=== PATIENT | male | born 1995 | race Caucasian/White ===

== ENCOUNTER 2021-04-24 14:44 | Emergency (ER) | payer OTHER, SELFPAY ==
--- NOTE | ~2021-04-24 | CT_ITS ---
EXAMINATION: CT HEAD WITHOUT CONTRAST CT CERVICAL SPINE WITHOUT CONTRAST CLINICAL INFORMATION: Fall with loss of consciousness, with headache COMPARISON: None TECHNIQUE: CT of the head and cervical spine were performed without intravenous contrast. Multiplanar reformats were rendered and reviewed. This CT examination was performed using dose optimization techniques as appropriate, variously including the following: *Automated exposure control *Adjustment of mA and/or kV according to patient size (this includes techniques or standardized protocols for targeted exams where dose is matched to indication/reason for exam; i.e. extremities or head) *Use of iterative reconstruction technique DLP: 1225 mGy-cm. FINDINGS: CT head: No intracranial hemorrhage, large infarction, or mass lesion is seen. No extra-axial collection is appreciated. The ventricles are normal in size and configuration without evidence of hydrocephalus. The visualized paranasal sinuses and mastoid air cells are clear. CT cervical spine: The cervical alignment is normal. The craniocervical junction is normal. The vertebral body heights are maintained. No cervical spine fracture is seen. The paraspinal soft tissues are within normal limits. The partially imaged lung apices are clear. CT/CT cervical spine wo con IMPRESSION: CT head: No acute intracranial finding. CT cervical spine: No cervical spine fracture or traumatic malalignment identified.
--- NOTE | ~2021-04-24 | CT_ITS ---
EXAMINATION: CT HEAD WITHOUT CONTRAST CT CERVICAL SPINE WITHOUT CONTRAST CLINICAL INFORMATION: Fall with loss of consciousness, with headache COMPARISON: None TECHNIQUE: CT of the head and cervical spine were performed without intravenous contrast. Multiplanar reformats were rendered and reviewed. This CT examination was performed using dose optimization techniques as appropriate, variously including the following: *Automated exposure control *Adjustment of mA and/or kV according to patient size (this includes techniques or standardized protocols for targeted exams where dose is matched to indication/reason for exam; i.e. extremities or head) *Use of iterative reconstruction technique DLP: 1225 mGy-cm. FINDINGS: CT head: No intracranial hemorrhage, large infarction, or mass lesion is seen. No extra-axial collection is appreciated. The ventricles are normal in size and configuration without evidence of hydrocephalus. The visualized paranasal sinuses and mastoid air cells are clear. CT cervical spine: The cervical alignment is normal. The craniocervical junction is normal. The vertebral body heights are maintained. No cervical spine fracture is seen. The paraspinal soft tissues are within normal limits. The partially imaged lung apices are clear. CT/CT head/brain wo con IMPRESSION: CT head: No acute intracranial finding. CT cervical spine: No cervical spine fracture or traumatic malalignment identified.
[2021-04-24 15:25] VITALS: BP 141/82; PULSE 71; RESP 18; TEMP 36.8; O2SAT 99; BMI 25.0
[2021-04-24 16:00] VITALS: BP 148/83; PULSE 72; RESP 18; TEMP 36.7; O2SAT 96
--- NOTE | 2021-04-24 16:56 | ED_ITS ---
HPI - Head Injury General Chief complaint: Head Injury <RSA Warner Last Filed: 04/24/21 18:47> Stated complaint: headache, nausea <RAS Warner Last Filed: 04/24/21 18:47> Time Seen by Provider: 04/24/21 16:51 <RAS Warner Last Filed: 04/24/21 18:47> Source: patient <RAS Warner Last Filed: 04/24/21 18:47> Mode of arrival: ambulatory <RAS Warner Last Filed: 04/24/21 18:47> Limitations: no limitations <RAS Warner Last Filed: 04/24/21 18:47> History of Present Illness HPI Narrative: This is a 25-year-old male with no known medical history presenting to the emergency department with right-sided headache, and neck pain since last night. he tells me that he was at a [employer] party last night, he was consuming alcohol, and smoking a hookah, he tells me he felt dizzy, and fell forward hitting his head on the right side he had a breif period of LOC. He is unsure what he hit his head against, but tells me he is having a severe headache right now. He states last night the pain was boring, however the pain has progressed and is now 10 and 10. He tried taking Tylenol with no relief. He also mentions that he is feeling extremely nauseous, and at times experiencing blurred vision. He denies chest pain, shortness of breath, fevers, chills, vomiting, abdominal pain, paresthesias, numbness, weakness. He is not on blood thinners. No seziure history <RAS Warner Last Filed: 04/24/21 18:47> MD Complaint: head injury and fall <RAS Warner Last Filed: 04/24/21 18:47> Onset (ago): day(s) (1) <RAS Warner Last Filed: 04/24/21 18:47> Mechanism of Injury: fall <RAS Warner Last Filed: 04/24/21 18:47> Place: other (at a alliance party ) <RAS Warner - Last Filed: 04/24/21 18:47> Loss of Consciousness: yes <RAS Warner - Last Filed: 04/24/21 18:47> Location of injury: frontal <RAS Warner - Last Filed: 04/24/21 18:47> Severity: severe <RAS Warner - Last Filed: 04/24/21 18:47> Severity scale (1-10): 10 <RAS Warner - Last Filed: 04/24/21 18:47> Quality: stabbing and aching <RAS Warner - Last Filed: 04/24/21 18:47> Radiation: none <RAS Warner - Last Filed: 04/24/21 18:47> Other Injuries: none <RAS Warner - Last Filed: 04/24/21 18:47> Associated symptoms: nausea <RAS Warner Last Filed: 04/24/21 18:47> Related Data Home medications: Previous Rx's Medication Instructions Recorded ondansetron 4 mg disintegrating 4 mg PO DAILY PRN #10 tab 04/24/21 tablet <RAS Warner - Last Filed: 04/24/21 18:47> Allergies/Adverse reactions: Allergies Allergy/AdvReac Type Severity Reaction Status Date / Time Penicillins Allergy Rash Verified 04/24/21 15:24 <RAS Warner - Last Filed: 04/24/21 18:47> Review of Systems Review of Systems: Constitutional : No Weight loss, No Fever, No Chills, No Fatigue, No Malaise ENT/Mouth : No sore throat, No Rhinorrhea Eyes: No Eye Pain, No Swelling, No Redness, +intermittent blurred vision Cardiovascular : No Chest Pain, No SOB, No Dyspnea on Exertion, No Orthopnea, No Edema, No Palpitations Respiratory : No Cough, No Sputum, No Wheezing Gastrointestinal : No Nausea, No Vomiting, No Diarrhea, No Constipation, No abdominal Pain, No Hematochezia, No Melena Genitourinary : No Dysuria, No Urinary Frequency, No Hematuria, Musculoskeletal : No joint pain, No Myalgias, No Joint Swelling Skin : No Skin Lesions, No rash Neuro : No Weakness, No Numbness, + Dizziness, + Headache a All other systems reviewed and are negative <RAS Warner - Last Filed: 04/24/21 18:47> PMFSH Past Medical History Attestation statement: The following information was validated with the patient. <RAS Warner - Last Filed: 04/24/21 18:47> Source: old records reviewed and nursing notes reviewed <RAS Warner - Last Filed: 04/24/21 18:47> Medical History: Medical History Tremor <RAS Warner - Last Filed: 04/24/21 18:47> Social History Social History: Social History Alcohol intake: current Alcohol intake frequency: holidays/special occasions only Patient Tobacco Use Status: Former Tobacco user Use of substances other than those prescribed or required for medical reasons: Yes Advance Directives: No Advance Directives Information Provided: Yes <RAS Warner - Last Filed: 04/24/21 18:47> Physical Exam Vital Signs: Vital Signs: Last Vital Signs Temp 98.1 F 04/24/21 16:00 Pulse 72 04/24/21 16:00 Resp 18 04/24/21 16:00 BP 148/83 H 04/24/21 16:00 Pulse Ox 96 04/24/21 16:00 Body Mass Index 25.0 <RAS Warner - Last Filed: 04/24/21 18:47> Vital Signs: Last Vital Signs Temp 98.1 F 04/24/21 16:00 Pulse 72 04/24/21 16:00 Resp 18 04/24/21 16:00 BP 148/83 H 04/24/21 16:00 Pulse Ox 96 04/24/21 16:00 Body Mass Index 25.0 <RAS Barriga - Last Filed: 04/25/21 22:37> Appearance: Alert.? Oriented X3.? No acute distress.? patient is resting on the stretcher, playing on his phone. Head: Normocephalic, atraumatic, no step-offs or deformities Eyes: Pupils equal, round and reactive to light.? Extraocular movements intact. Sleral icterus b/l ENT: Pharynx normal.? Neck: Normal inspection.? Neck supple.?Mild Pain with ROM CVS: Normal heart rate and rhythm.? Pulses normal.? Respiratory: No respiratory distress.? Breath sounds normal.? Abdomen: Soft and nontender.? Skin: Skin warm and dry.? Normal skin color.? Normal skin turgor.? Extremities: No lower extremity edema.? No calf ttp. 5/5 strength to bilateral upper and lower extremities Back: No midline tenderness, + mild C-spine tenderness, full range of motion, no CVA tenderness bilaterally Neuro: Oriented X 3.? No motor deficit.? No sensory deficit. Normal hand content development specialist, finger to nose and heel to sykes. Normal gait <RAS Warner - Last Filed: 04/24/21 18:47> Course Course Course Narrative: patient seen and examined. agree with assessment and plan <RAS Barriga - Last Filed: 04/25/21 22:37> Reevaluation(s) Reevaluation #1: CBC with no abnormalities. Total bilirubin 3.8 elevated. Hepatitis pannel will be done. He denies abdominal pain therefore at this time i will not do a RUQ US, as this can be done out patient and is not emergent <RAS Warner Last Filed: 04/24/21 18:47> Reevaluation #2: CT of the head and neck negative for fractures or intracranial hemorrhage. Patient's symptoms are likely a concussion. Will educate patient on post concussive syndrome, I also advised him to limit his screen time. I will give him strict return precautions to return to the emergency department with worsening headache, nausea, vomiting, vision changes. Have advised him to follow-up with his primary care provider, and rest his brain . I will send him home with sublingual Zofran. I have also advised patient to follow-up with GI due to his elevated bilirubin, at this time he denies abdominal pain and for this reason an emergent ultrasound of the liver is not warranted. He can follow up with PCP and GI. I also added a hepatitis panel, if results are positive patient will be called. <RAS Warner - Last Filed: 04/24/21 18:47> Time: 18:37 <RAS Warner - Last Filed: 04/24/21 18:47> MDM - Head Injury MDM Narrative Medical decision making narrative: 1701 25-year-old male with no known medical history presents the emergency depa rtment with concerns of right frontal severe constant headache, nausea, intermittent blurred vision and dizziness status post falling and hitting the right frontal aspect of his head last night at a [employer] party. No seizure history. Not on blood thinners Upon physical examination patient appears well he is resting on the stretcher no acute distress, he is playing on his phone in reading text messages. Lungs are clear to auscultation. Normal S1 and S2 no murmurs. Abdomen soft nontender nondistended. There is mild tenderness to the C-spine upon palpation. No pain with range of motion of the neck. Head is normocephalic, atraumatic with no step-offs or deformities. No focal neuro deficits. Normal steady gait, no ataxia. PERRLA, EOMI, b/l sclaral icterus. Normal [id number]-[id number], [id number]-[id number]-lybi, hand content development specialist. 5/5 strength upper and lower extremities. Plan at this time is to obtain basic labs, magnesium, CT of the cervical spine and head. An EKG will also be done. <RAS Warner - Last Filed: 04/24/21 18:47> Medical Records Attestation: I reviewed the patient's medical records. <RAS Warner - Last Filed: 04/24/21 18:47> Lab Data Attestation: I reviewed the patient's lab results. <RAS Warner - Last Filed: 04/24/21 18:47> Result diagrams: : 04/24/21 17:01 04/24/21 17:01 <RAS Warner - Last Filed: 04/24/21 18:47> Labs: Lab Results 04/24/21 04/24/21 04/24/21 Range/Units 17:01 17:01 17:01 WBC 6.2 (4.8-10.8) X10*3/uL RBC 4.98 (4.60-5.80) X10*6/uL Hgb 14.2 (14.0-18.0) g/dl Hct 43.0 (42.0-52.0) % MCV 86.3 (80.0-98.0) fL MCH 28.5 (27.0-33.0) pg MCHC 33.0 (31.0-36.0) g/dl RDW 12.6 (11.0-16.0) % Plt Count 239 (160-400) X10*3/uL MPV 10.0 (9.4-12.4) fL Immature Gran % (Auto) 0.2 (0.0-0.4) % Neut % (Auto) 57.9 (45-73) % Lymph % (Auto) 31.6 (20-40) % [place] % (Auto) 7.1 (2-11) % Eos % (Auto) 2.6 (0-4) % Baso % (Auto) 0.6 (0-2) % Lymph # (Auto) 2.0 (1.2-4.9) X10*3/uL [place] # (Auto) 0.4 (0.1-1.2) X10*3/uL Eos # (Auto) 0.2 (0.0-0.4) X10*3/uL Baso # (Auto) 0.0 (0.0-0.2) X10*3/uL Abs Immat Gran (auto) 0.01 (0.00-0.03) X10*3/uL Absolute Neuts (auto) 3.6 (2.0-8.3) x10*3/uL Absolute Nucleated RBC 0.000 (0.0-0.012) X10*3/uL Nucleated RBC % (auto) 0.0 (0.0-0.2) /100WBC Sodium 140 (135-145) mmol/L Potassium 4.1 (3.3-5.1) mmol/L Chloride 106 (96-108) mmol/L Carbon Dioxide 27 (22-29) mmol/L Anion Gap 11 L (12-20) BUN 11 (9-16) mg/dL Creatinine 0.81 (0.5-1.4) mg/dL Estim Creat Clear Calc 164.9 Estimated GFR > 60 Random Glucose 117 H (60-115) mg/dL Calcium 9.4 (8.4-10.2) mg/dL Magnesium 2.1 (1.6-2.6) mg/dL Total Bilirubin 3.8 H (0.0-1.0) mg/dL AST 12 (5-37) U/L ALT 9 (0-40) U/L Alkaline Phosphatase 46 (39-117) U/L Total Protein 6.8 (6.5-8.0) g/dL Albumin 4.5 (3.5-5.0) g/dL Hep Bs Antigen Negative (Negative) Hep Bs Antibody NONREACTIVE (Nonreactive) Hep B Core Total Ab Nonreactive (Nonreactive) Hepatitis C Ab (EIA) Nonreactive (Nonreactive) <RAS Warner - Last Filed: 04/24/21 18:47> Lab Results 04/24/21 04/24/21 04/24/21 Range/Units 17:01 17:01 17:01 WBC 6.2 (4.8-10.8) X10*3/uL RBC 4.98 (4.60-5.80) X10*6/uL Hgb 14.2 (14.0-18.0) g/dl Hct 43.0 (42.0-52.0) % MCV 86.3 (80.0-98.0) fL MCH 28.5 (27.0-33.0) pg MCHC 33.0 (31.0-36.0) g/dl RDW 12.6 (11.0-16.0) % Plt Count 239 (160-400) X10*3/uL MPV 10.0 (9.4-12.4) fL Immature Gran % (Auto) 0.2 (0.0-0.4) % Neut % (Auto) 57.9 (45-73) % Lymph % (Auto) 31.6 (20-40) % [place] % (Auto) 7.1 (2-11) % Eos % (Auto) 2.6 (0-4) % Baso % (Auto) 0.6 (0-2) % Lymph # (Auto) 2.0 (1.2-4.9) X10*3/uL [place] # (Auto) 0.4 (0.1-1.2) X10*3/uL Eos # (Auto) 0.2 (0.0-0.4) X10*3/uL Baso # (Auto) 0.0 (0.0-0.2) X10*3/uL Abs Immat Gran (auto) 0.01 (0.00-0.03) X10*3/uL Absolute Neuts (auto) 3.6 (2.0-8.3) x10*3/uL Absolute Nucleated RBC 0.000 (0.0-0.012) X10*3/uL Nucleated RBC % (auto) 0.0 (0.0-0.2) /100WBC Sodium 140 (135-145) mmol/L Potassium 4.1 (3.3-5.1) mmol/L Chloride 106 (96-108) mmol/L Carbon Dioxide 27 (22-29) mmol/L Anion Gap 11 L (12-20) BUN 11 (9-16) mg/dL Creatinine 0.81 (0.5-1.4) mg/dL Estim Creat Clear Calc 164.9 Estimated GFR > 60 Random Glucose 117 H (60-115) mg/dL Calcium 9.4 (8.4-10.2) mg/dL Magnesium 2.1 (1.6-2.6) mg/dL Total Bilirubin 3.8 H (0.0-1.0) mg/dL AST 12 (5-37) U/L ALT 9 (0-40) U/L Alkaline Phosphatase 46 (39-117) U/L Total Protein 6.8 (6.5-8.0) g/dL Albumin 4.5 (3.5-5.0) g/dL Hep Bs Antigen Negative (Negative) Hep Bs Antibody NONREACTIVE (Nonreactive) Hep B Core Total Ab Nonreactive (Nonreactive) Hepatitis C Ab (EIA) Nonreactive (Nonreactive) <RAS Barriga - Last Filed: 04/25/21 22:37> Imaging Data CT scan - head: Attestation: I personally reviewed and interpreted this imaging study as follows: <RAS Warner - Last Filed: 04/24/21 18:47> Radiologist's impression: CT/CT cervical spine wo con IMPRESSION: ? CT head: No acute intracranial finding. ? ? CT cervical spine: No cervical spine fracture or traumatic malalignment identified. <RAS Warner - Last Filed: 04/24/21 18:47> ECG Data Attestation: I personally reviewed and interpreted this ECG as follows: <RAS Warner - Last Filed: 04/24/21 18:47> ECG interpretation date: 04/24/21 <RAS Warner - Last Filed: 04/24/21 18:47> ECG interpretation time: 13:26 <RAS Warner - Last Filed: 04/24/21 18:47> Prior ECG tracings: not available for review <RAS Warner - Last Filed: 04/24/21 18:47> Interpretation: Ventricular rate of 85, MN normal, QRS normal, QT/ QTC normal. EKG shows normal sinus rhythm. With possible left atrial enlargement. No ST elevations or depressions. No acute ischemia. No previous EKGs to compare with. <RAS Warner - Last Filed: 04/24/21 18:47> Discharge Plan Discharge Clinical Impression: Concussion with loss of consciousness, Elevated bilirubin <RAS Warner - Last Filed: 04/24/21 18:47> Patient Disposition: Home, Self-Care <RAS Warner - Last Filed: 04/24/21 18:47> Instructions: Concussion (ED), Post Concussion Syndrome (ED) <RAS Warner - Last Filed: 04/24/21 18:47> Additional Instructions: Take your medications as prescribed. Follow-up with your primary care provider this week. Your bilirubin was noted to be elevated you should follow up with GI. Hepatitis panel pending, will call you only if results are positive. Return to the emergency department with new or worsening symptoms. In case of emergency call 911 <RAS Warner - Last Filed: 04/24/21 18:47> Prescriptions: New ondansetron 4 mg tablet,disintegrating 4 mg PO DAILY PRN (Reason: nausea and vomiting) Qty: 10 RF: 0 <RAS Warner - Last Filed: 04/24/21 18:47> Referrals: Maliha Jones MD [Physician] - 2 days <ARS Warner - Last Filed: 04/24/21 18:47> Stand Alone Forms: Work/School Release <RAS Warner - Last Filed: 04/24/21 18:47> Interventions: ED Discharge Assessment Last Done: 04/24/21 19:04 <RAS Warner - Last Filed: 04/24/21 18:47> Discharge Date/Time: 04/24/21 19:04 <RAS Warner - Last Filed: 04/24/21 18:47>
--- NOTE | 2021-04-24 17:01 | ECG_ITS ---
Test Reason : FALL Blood Pressure : / mmHG Vent. Rate : 066 BPM Atrial Rate : 066 BPM P-R Int : 178 ms QRS Dur : 106 ms QT Int : 374 ms P-R-T Axes : 048 063 022 degrees QTc Int : 392 ms Normal sinus rhythm Normal ECG No previous ECGs available Referred By: Lorri Vital Electronically Signed By:QUENTIN MALONE MD
[2021-04-24 17:06] LABS: MANUAL DIFF FLAG NO
--- NOTE | 2021-04-24 17:07 | PC.NURSE ---
patient a&ox3, no c/o pain or discomfort, rig supervisor applied nsr 70s, vss, will continue to monitor.
[2021-04-24 17:08] LABS: Basophils Percent Auto 0.6 % (0-2); Eosinophils Absolute Auto 0.2 X10*3/uL (0.0-0.4); Eosinophils Percent Auto 2.6 % (0-4); Hemoglobin 14.2 g/dl (14.0-18.0); Imm Gran Abs Auto 0.01 X10*3/uL (0.00-0.03); Imm Gran Pct Auto 0.2 % (0.0-0.4); Lymphocytes Percent Auto 31.6 % (20-40); Mean Corpuscular Hemoglobin 28.5 pg (27.0-33.0); Mean Corpuscular Volume 86.3 fL (80.0-98.0); Monocytes Absolute Auto 0.4 X10*3/uL (0.1-1.2); Monocytes Percent Auto 7.1 % (2-11); Neutrophils Absolute Auto 3.6 x10*3/uL (2.0-8.3); Neutrophils Percent Auto 57.9 % (45-73); Platelet Count 239 X10*3/uL (160-400); Red Blood Count 4.98 X10*6/uL (4.60-5.80); Red Cell Distribution Width 12.6 % (11.0-16.0); White Blood Count 6.2 X10*3/uL (4.8-10.8)
[2021-04-24] MEDS: Ondansetron ODT 4 MG TAB.RAPDIS TRANSLINGU (17:13)
[2021-04-24] MEDS: Ketorolac Tromethamine 15 MG/ML VIAL IM (17:13)
--- NOTE | 2021-04-24 17:13 | PC.NURSE ---
patient a&ox3, pt medicated per order, labs drawn, ekg being performed, will continue to monitor.
[2021-04-24 17:29] LABS: Alanine Aminotransferase 9 U/L (0-40); Albumin Level 4.5 g/dL (3.5-5.0); Alkaline Phosphatase 46 U/L (39-117); Anion Gap 11 (12-20); Aspartate Amino Transferase 12 U/L (5-37); Bilirubin Total 3.8 mg/dL (0.0-1.0); Blood Urea Nitrogen 11 mg/dL (9-16); Calcium 9.4 mg/dL (8.4-10.2); Carbon Dioxide 27 mmol/L (22-29); Chloride 106 mmol/L (96-108); Creatinine Clr Calc Pharmacy 164.9; Estimated Glomerular Filt Rate > 60; Glucose Random 117 mg/dL (60-115); Magnesium 2.1 mg/dL (1.6-2.6); Potassium 4.1 mmol/L (3.3-5.1); Sodium 140 mmol/L (135-145); Total Protein 6.8 g/dL (6.5-8.0)
[2021-04-25 04:20] LABS: HBc Num1 0.11 S/CO (0.00-0.79); Hepatitis B Core Antibody Nonreactive (Nonreactive); ~Hepatitis B Surface Antibody NONREACTIVE (Nonreactive)
[2021-04-25 04:28] LABS: HBsAGNum1 0.14 S/CO (0.00-0.99); Hepatitis B Surface Antigen Negative (Negative); ~HepC Num1 0.41 S/CO (0.00-0.79); ~Hepatitis C Antibody Nonreactive (Nonreactive)
[2021-04-27 04:17] LABS: Hepatitis A Antibody IgM 0.23 Index (0-0.79); ~Hepatitis A Antibody IgM Nonreactive (Nonreactive)
== END 2021-04-24 19:04 | disposition home or self-care (01) ==
PROVIDERS: Physician Assistant; Emergency Provider Emergency Medicine Emergency Medical Services
DX: S06.0X9A Concussion with loss of consciousness of unspecified duration, initial encounter (principal); G44.309 Post-traumatic headache, unspecified, not intractable; M54.2 Cervicalgia; E80.6 Other disorders of bilirubin metabolism; W01.0XXA Fall on same level from slipping, tripping and stumbling without subsequent striking against object, initial encounter; Y93.9 Activity, unspecified; Y92.9 Unspecified place or not applicable; Y99.9 Unspecified external cause status; Z87.891 Personal history of nicotine dependence
CPT/HCPCS: 36415; 70450; 72125; 80053; 83735; 85025; 86704; 86706; 86709; 86803; 87340; 93005; 96372; 99284; J1885